=== PATIENT | female | born 1965 | race Caucasian/White ===

== ENCOUNTER → 2017-03-27 | Outpatient (REF) | payer BC | LOC: M LAB REF 10:55 | PROVIDERS: ATTEND Internal Medicine | DX: E21.3 Hyperparathyroidism, unspecified (principal) ==

== ENCOUNTER → 2017-03-30 | Outpatient (CLI) | payer BC ==
[2017-03-30 19:37] LABS: THYROXINE (T4) 11.2 UG/DL (4.5-12.0)
[2017-03-30 20:30] LABS: BASO % 0.9 % (0.0-1.0); EOS # 0.1 K/mm3 (0.0-0.50); EOS % 2.2 % (0.0-3.0); LARGE UNSTAINED CELL # 0.1 K/mm3 (0.0-0.4); LARGE UNSTAINED CELL % 3.3 % (0.0-4.0); LYMPH # 1.3 K/mm3 (1.5-4.5); LYMPH % 30.7 % (24.0-44.0); MEAN CORPUSCULAR HEMOGLOBIN 32.1 pg (27.0-33.0); MEAN CORPUSCULAR HGB CONC 34.2 g/dl (32.0-36.5); MEAN CORPUSCULAR VOLUME 93.9 fl (80.0-96.0); MONO # 0.3 K/mm3 (0.0-0.8); MONO % 6.6 % (0.0-5.0); NEUTROPHILS # 2.4 K/mm3 (1.8-7.7); NEUTROPHILS % 56.3 % (36.0-66.0); PLATELET COUNT, AUTOMATED 311 k/mm3 (150-450); WHITE BLOOD COUNT 4.2 K/mm3 (4.0-10.0)
[2017-03-30 21:16] LABS: ERYTHROCYTE SEDIMENTATION RATE 16 mm/hr (0-30)
[2017-03-31 07:04] LABS: THYROID PEROXIDASE ANTIBODY < 28.0 U/ML (<60.0)
[2017-04-08 00:06] LABS: C1 ESTER INHIB. NON FUNCTIONAL 33 mg/dL (21-39); C1 ESTERASE INHIB. FUNCTIONAL 111 (.)
== END ==
LOC: M SMT 11:45
PROVIDERS: ATTEND Allergy & Immunology Allergy
DX: T78.3XXA Angioneurotic edema, initial encounter (principal)

== ENCOUNTER → 2017-06-23 | Outpatient (REF) | payer BC | LOC: M LAB REF 13:09 | PROVIDERS: ATTEND Internal Medicine | DX: E21.3 Hyperparathyroidism, unspecified (principal) ==

== ENCOUNTER → 2017-11-14 | Outpatient (REF) | payer BC ==
[2017-11-14 17:56] LABS: PTH INTACT 77.7 PG/ML (18.5-88.0)
== END ==
LOC: M LAB REF 16:45
DX: E21.3 Hyperparathyroidism, unspecified (principal)
CPT/HCPCS: 83970

== ENCOUNTER → 2018-04-23 | Outpatient (REF) | payer BC ==
[2018-04-23 14:14] LABS: PTH INTACT 94.8 PG/ML (18.5-88.0)
== END ==
LOC: M LAB REF 13:36
DX: E21.3 Hyperparathyroidism, unspecified (principal)
CPT/HCPCS: 83970

== ENCOUNTER → 2018-11-05 | Outpatient (REF) | payer BC ==
[2018-11-08 15:46] LABS: IRON (FE) 33 UG/DL (50-170); PERCENT SATURATION 7.2 % (13.2-45.0); TOTAL IRON BINDING CAPACITY 460 UG/DL (250-450)
[2018-11-08 17:59] LABS: FOLATE > 24.0 NG/ML; VITAMIN B12 LEVEL 1069 PG/ML
== END ==
LOC: M LAB REF 11:50
PROVIDERS: ATTEND Internal Medicine
DX: E21.3 Hyperparathyroidism, unspecified (principal)

== ENCOUNTER → 2018-12-12 | Outpatient (REF) | payer BC ==
[2018-12-12 18:41] LABS: IRON (FE) 73 UG/DL (50-170); PERCENT SATURATION 18.8 % (13.2-45.0); TOTAL IRON BINDING CAPACITY 388 UG/DL (250-450)
[2018-12-12 18:47] LABS: FOLATE > 24.0 NG/ML; VITAMIN B12 LEVEL 1016 PG/ML
== END ==
LOC: M LAB REF 17:03
PROVIDERS: ATTEND Internal Medicine
DX: D64.9 Anemia, unspecified (principal)

== ENCOUNTER → 2019-08-13 | Outpatient (REF) | payer BC ==
[2019-08-13 18:05] LABS: PERCENT SATURATION 27.1 % (13.2-45.0)
[2019-08-13 18:15] LABS: PTH INTACT 63.5 PG/ML (18.5-88.0)
== END ==
LOC: M LAB REF 16:52
PROVIDERS: ATTEND Internal Medicine
DX: D50.9 Iron deficiency anemia, unspecified (principal); E21.3 Hyperparathyroidism, unspecified

== ENCOUNTER → 2020-09-25 | Outpatient (REF) | payer BC | LOC: M LAB REF 16:13 | PROVIDERS: ATTEND Internal Medicine | DX: E21.3 Hyperparathyroidism, unspecified (principal) ==

== ENCOUNTER → 2021-07-02 | Outpatient (REF) | payer BC | LOC: M LAB REF 12:32 | PROVIDERS: ATTEND Internal Medicine | DX: E21.3 Hyperparathyroidism, unspecified (principal) ==

== ENCOUNTER → 2021-09-17 | Outpatient (CLI) | payer BC | LOC: M WUC 15:29 | PROVIDERS: ATTEND Internal Medicine | DX: M79.642 Pain in left hand (principal) ==

== ENCOUNTER → 2022-05-10 | Outpatient (REF) | payer BC | LOC: M LAB REF 14:20 | PROVIDERS: ATTEND Internal Medicine | DX: E21.3 Hyperparathyroidism, unspecified (principal) ==

== ENCOUNTER → 2023-03-03 | Outpatient (REF) | payer BC | LOC: M LAB REF 16:20 | PROVIDERS: ATTEND Internal Medicine | DX: E21.3 Hyperparathyroidism, unspecified (principal) ==

== ENCOUNTER → 2023-08-08 | Outpatient (REF) | payer BC ==
[2023-08-08 17:24] LABS: C REACTIVE PROTEIN QUANTITATIV < 0.40 MG/DL (<1.0)
[2023-08-08 17:28] LABS: RHEUMATOID FACTOR QUANT < 3.5 IU/ML (<14)
[2023-08-10 23:07] LABS: ANA (HEP2) Negative (.); CYCLIC CITRULLINATED PEPTIDE 8 units (0-19)
== END ==
LOC: M LAB REF 16:29
PROVIDERS: ATTEND Nurse Practitioner Family
DX: M25.50 Pain in unspecified joint (principal)

== ENCOUNTER → 2024-03-04 | Outpatient (REF) | payer BC | LOC: M LAB REF 16:22 | PROVIDERS: ATTEND Internal Medicine | DX: E21.3 Hyperparathyroidism, unspecified (principal) ==

== ENCOUNTER → 2024-04-16 | Outpatient (CLI) | payer BC | LOC: M SOG 07:22 | PROVIDERS: ATTEND Physician Assistant | DX: M25.571 Pain in right ankle and joints of right foot (principal) ==

== ENCOUNTER → 2024-04-29 | Outpatient (CLI) | payer BC | LOC: M WHC 16:00 | PROVIDERS: ATTEND Internal Medicine | DX: Z12.31 Encounter for screening mammogram for malignant neoplasm of breast (principal); Z80.3 Family history of malignant neoplasm of breast; Z80.42 Family history of malignant neoplasm of prostate; R92.323 Mammographic fibroglandular density, bilateral breasts ==

== ENCOUNTER → 2024-09-30 | Outpatient (REF) | payer BC | LOC: M LAB REF 17:27 | PROVIDERS: ATTEND Internal Medicine | DX: E21.3 Hyperparathyroidism, unspecified (principal) ==